=== PATIENT | female | born 1965 | race Caucasian/White ===

== ENCOUNTER 2019-09-05 10:49 | Outpatient (CLI) | payer BC ==
--- NOTE | 2019-09-05 11:36 | RAD ---
TWO VIEWS LUMBAR SPINE: HISTORY: Left-sided sciatica. FINDINGS: Five lumbar-type vertebrae. Lumbar spine vertebral body height is maintained. No fracture. No spondyl olisthesis or spondylolysis. Mild loss of disc space height at L5-S1. Visualized sacrum and bony pelvis are unremarkable. IMPRESSION: No radiographic evidence of significant degenerative change. MRI if clinically warranted. Transcribed Date/Time: 09/05/2019 11:51 AM
== END 2019-09-05 10:50 | disposition home or self-care (01) ==
LOC: BICRAD 10:49
PROVIDERS: ATTEND Chiropractor
DX: M54.32 Sciatica, left side (principal)
CPT/HCPCS: 72100